=== PATIENT | female | born 1940 | race Caucasian/White ===

== ENCOUNTER 2017-01-27 22:26 | Inpatient (IN) | payer MEDICARE ==
[~2017-01-27] VITALS: Ht 160 cm; Wt 62.5 kg
[2017-01-27 22:46] VITALS: Ht 160 cm; Wt 62.5 kg
[2017-01-28] MEDS ORDERED: CEFEPIME 2GM/50 ML (PMX) 50 ML IVPB STA (01:26)
[2017-01-28] MEDS ORDERED: VANCOMYCIN 1 GM (PMX) 250 ML IVPB ONE (01:30)
[2017-01-28 02:29] LABS: ADD SCAN DIFF NO
[2017-01-28 02:34] LABS: BASOPHILS % 0.2 % (0.0-2.0); EOSINOPHILS # 0.1 10^3/ul (0.0-0.5); EOSINOPHILS % 1.1 % (0.0-7.0); HEMOGLOBIN 12.6 g/dl (12.0-16.0); LYMPHOCYTES % 21.4 % (15.0-51.0); MEAN CORPUSCULAR HEMOGLOBIN 30.7 pg (29.0-33.0); MEAN CORPUSCULAR HGB CONC 33.2 g/dl (32.0-37.0); MEAN CORPUSCULAR VOLUME 92.5 fl (82.0-101.0); MONOCYTE # 0.6 10^3/ul (0.3-0.9); MONOCYTES % 6.3 % (0.0-11.0); NEUTROPHIL # 6.6 10^3/ul (1.6-7.5); PLATELET COUNT 229 10^3/UL (140-415); RED BLOOD COUNT 4.11 10^6/ul (4.20-5.40); RED CELL DISTRIBUTION WIDTH 12.7 % (11.5-14.5); WHITE BLOOD COUNT 9.4 10^3/ul (4.8-10.8)
--- NOTE | 2017-01-28 02:42 | ERA ---
ER Documentation Chief Complaint Date/Time DATE: 01/28/17 TIME: 02:41 Chief Complaint sp fall from 3 steps stairs, face down, facial hematoma, bump forehead HPI This is a 76-year-old female who recently came back on a trip to [place] 8 days ago. 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 She also tripped and fell today and has a small periorbital hematoma. No loss of consciousness. No fevers no chills. No other current complaints. ROS All systems reviewed and are negative except as per history of present illness. Allergies Allergies: Coded Allergies: No Known Allergy (Unverified , 01/27/17) PMhx/Soc History of Surgery: No Anesthesia Reaction: No Hx Neurological Disorder: No Hx Respiratory Disorders: No Hx Cardiac Disorders: No Hx Psychiatric Problems: No Hx Miscellaneous Medical Probl: Yes (high cholesterol) Hx Alcohol Use: No Hx Substance Use: No Hx Tobacco Use: No Smoking Status: Never smoker Physical Exam Vitals Vital Signs Date Time Temp Pulse Resp B/P Pulse Ox O2 Delivery O2 Flow Rate FiO2 01/28/17 02:16 99.5 66 25 151/79 96 Room Air 01/27/17 22:46 98.9 62 20 153/67 98 Physical Exam Const: [] Head: Atraumatic Eyes: Normal Conjunctiva ENT: Normal External Ears, Nose and Mouth. Neck: Full range of motion..~ No meningismus. Resp: Clear to auscultation bilaterally Cardio: Regular rate and rhythm, no murmurs Abd: Soft, non tender, non distended. Normal bowel sounds Skin: No petechiae or rashes Back: No midline or flank tenderness Ext: No cyanosis, or edema Neur: Awake and alert Psych: Normal Mood and Affect Results 24 hrs Current Medications Medications (Trade) Dose Ordered Sig/Francine Route PRN Reason Start Time Stop Time Status Last Admin Dose Admin Cefepime HCl 50 ml @ 100 mls/hr ONCE STAT IVPB 01/28/17 01:26 01/28/17 01:55 DC Vancomycin HCl (Vancocin) 250 ml @ 125 mls/hr ONCE ONCE IVPB 01/28/17 01:30 01/28/17 03:29 01/28/17 02:15 Procedures/MDM Blood cultures pending. CT of the head negative for acute intracranial pathology. Medical decision-makin for mechanical trip and fall. She has no intracranial abnormality, however she has a worsening cellulitis of lower extremity requiring IV antibiotics and admission. Patient will be admitted to hospitalist. Departure Diagnosis: Primary Impression: Fall Qualified Code: W19.XXXA - Fall, initial encounter Additional Impression: Left leg cellulitis Condition: Serious JOMAR HENRIQUEZ Jan 28, 2017 02:42
[2017-01-28 02:48] LABS: ALBUMIN 3.5 g/dl (3.3-4.9)
[2017-01-28 02:49] LABS: POTASSIUM 4.4 mmol/L (3.5-5.1)
[2017-01-28 02:51] LABS: ALBUMIN/GLOBULIN RATIO 1.02; BILIRUBIN,INDIRECT 0.7 mg/dl (0-1.1); BILIRUBIN,TOTAL 0.7 mg/dl (0.2-1.3); CREATININE 0.51 mg/dl (0.44-1.00); TOTAL PROTEIN 6.9 g/dl (6.1-8.1)
[2017-01-28 02:52] LABS: CALCIUM 10.1 mg/dl (8.4-10.2)
[2017-01-28] MEDS ORDERED: SOD CHLORIDE 0.9% 1,000 ML IV SCH (03:18)
[2017-01-28] MEDS ORDERED: NACL 0.9% 3 ML SYG IV SCH (03:30)
[2017-01-28] MEDS ORDERED: NITROGLYCERIN (SL) 0.4 MG TAB SL PRN (03:30)
[2017-01-28] MEDS ORDERED: ONDANSETRON 4 MG INJ IV PRN (03:30)
[2017-01-28] MEDS ORDERED: ALBUTEROL/IPRATROPIUM (NEB) 3 ML AMP HHN PRN (03:30)
[2017-01-28] MEDS ORDERED: MAGNESIUM HYDROXIDE 30ML CUP PO PRN (03:30)
[2017-01-28] MEDS ORDERED: DOCUSATE SODIUM 100 MG CAP PO PRN (03:30)
[2017-01-28] MEDS ORDERED: NA PHOSPHATE/BIPHOS 133 ML ENEMA PR PRN (03:30)
[2017-01-28] MEDS ORDERED: ACETAMINOPHEN 325 MG TAB PO PRN (03:30)
[2017-01-28] MEDS ORDERED: hydrALAzine 20 MG INJ IV PRN (03:30)
[2017-01-28] MEDS ORDERED: LORAZEPAM 2 MG INJ IV PRN (03:30)
--- NOTE | 2017-01-28 03:36 | RADRPT ---
PROCEDURE: Noncontrast CT Head. CLINICAL INDICATION: Pain. TECHNIQUE: Noncontrast CT of the head was obtained. The administered radiation dose was CTDI vol = 45 mGy, DLP = 720 mGy-cm. COMPARISON: No pertinent prior examinations were submitted for comparison. FINDINGS: The ventricles and cortical sulci are mildly enlarged. There is mild decreased attenuation within t he periventricular and subcortical white matter compatible with chronic microvascular changes. There is no acute intracranial hemorrhage or extra-axial fluid collection. There is no mass effect . No midline shift is identified. There is no loss of callahan-white differentiation to suggest acute in farction. The orbits are within normal limits. There is partial opacification of the right maxillary sinus and ethmoid air cells. No destructive osseous lesion is identified. IMPRESSION: No acute findings. Mild diffuse parenchymal volume loss and chronic microvascular changes. RPTAT: HIKT .Elgin Moran MD, MD Date Time Electronically viewed and signed by .Elgin Moran MD, MD on 01/28/2017 03:36 .T/
[2017-01-28] MEDS: morphine 2 MG INJ IV PRN ×2 (04:00→09:11)
[2017-01-28 04:44] VITALS: TEMP 98.6
[2017-01-28 05:42] VITALS: BP 138/69; PULSE 62; RESP 18
[2017-01-28] MEDS ORDERED: PIPER-TAZO 3.375 GM IV (PMX) 100 ML IVPB SCH (06:00)
[2017-01-28] MEDS: PANTOPRAZOLE (EC) 40 MG TAB PO SCH (06:38)
--- NOTE | 2017-01-28 06:55 | HP ---
DATE OF ADMISSION: 01/28/2017 CHIEF COMPLAINT: Status post fall and left lower extremity pain and facial hematoma. HISTORY OF PRESENT ILLNESS: A 76-year-old female with no significant past medical history who recen sourav returned from a trip from [place] 7 to 8 days ago, apparently she has been having for the last fe w days left lower extremity pain and redness and also some warmth there with signs of possible cellu litis. There have been some purulent drainage noted too as well. She also tripped and fell shortly before admission today and developed a small periorbital hematoma but denied any loss of consciousn ess, no fevers or chills, no upper or lower GI bleeding. No nausea, vomiting, no chest pain, no solange rtness of breath. No diarrhea, no constipation. When she came in, there were signs of cellulitis a nd the patient was given IV antibiotics in the ER. PAST MEDICAL HISTORY: As stated above, high cholesterol. ALLERGIES: NO KNOWN DRUG ALLERGIES. MEDICATIONS AT HOME: Apparently none. SOCIAL HISTORY: Negative for smoking, drinking, or IV drug abuse. PAST SURGICAL HISTORY: None. FAMILY HISTORY: Noncontributory. PHYSICAL EXAMINATION: VITAL SIGNS: Today, T-max 99.5, pulse of 58 to 66, respirations 18 to 25, blood pressure is 138/69, saturating 96% on room air. GENERAL: The patient is lying in bed, answering questions appropriately, in no acute distress. HEENT: Pupils equal, round, react to light. Extraocular muscles intact. There is a large left per iorbital hematoma noted and there is some bruising noted on the facial area as well. NECK: Supple, no thyromegaly. LUNGS: Clear to auscultation bilaterally. CARDIOVASCULAR: S1, S2 heard. No rubs or gallops. ABDOMEN: Soft, nontender, nondistended. Normal bowel sounds. No rebound or guarding . MUSCULOSKELETAL: On her left lower extremity, there is redness and the warmth noted on the anterior guaman area as well. There is also mild bruising noted as well, but some mild edema noted around the warm area site and the redness site but otherwise no lower extremity edema noted on the right lower extremity. NEUROLOGIC: No focal deficits. LABORATORIES: CBC is completely normal. The comprehensive metabolic panel is normal. IMAGING: The head CT was performed that shows no acute findings. ASSESSMENT AND PLAN: A 76-year-old female with signs of status post fall with some bruising noted o n the skin as well as a left periorbital hematoma and also left lower extremity cellulitis. 1. Left lower extremity pain secondary to cellulitis. Continue broad spectrum IV antibiotics. Ingrid ck TSH, A1c, and lipid panel. Tylenol p.r.n. pain and fevers. [place] and morphine p.r.n. for pain. IV fluids will continue. Get physical therapy and occupational therapy consults as well. 2. High cholesterol. Check lipid panel. 3. Status post fall. Again, head CT was negative. She does have some bruising however and also a left eft periorbital hematoma. Continue pain control medications, physical therapy and occupational therapy consults and monitor for now. Avoid anticoagulants for now. 4. Gastrointestinal prophylaxis, proton pump inhibitor. 5. Deep vein thrombosis prophylaxis, sequential compression devices. Dictated By: TARA GUTIÉRREZ Conf#: [id number] DID#: [id number]
[2017-01-28 07:40] VITALS: BP 138/61; RESP 16
[2017-01-28] MEDS ORDERED: HEPARIN 5,000 UNIT/0.5 ML SYG SC SCH (09:00)
--- NOTE | 2017-01-28 10:54 | PN ---
Date/Time of Note Date/Time of Note DATE: 01/28/17 TIME: 10:52 Assessment/Plan VTE Prophylaxis VTE Prophylaxis Intervention: SCD's Lines/Catheters IV Catheter Type (from Nrsg): Peripheral IV Assessment/Plan Assessment/Plan 1. Left lower extremity pain secondary to cellulitis. Continue broad spectrum IV antibiotics. Check TSH, A1c, and lipid panel. Tylenol p.r.n. pain and fevers. [place] and morphine p.r.n. for pain. IV fluids will continue. Get physical therapy and occupational therapy consults as well. 2. s/p mechanical fall with significant bruising and left frontal hematoma - c/ ointractable pain, very unsteady gait 2. High cholesterol. Check lipid panel. 3. Status post fall. Again, head CT was negative. She does have some bruising however and also a left eft periorbital hematoma. Continue pain control medications, physical therapy and occupational therapy consults and monitor for now. Avoid anticoagulants for now. 4. Gastrointestinal prophylaxis, proton pump inhibitor. 5. Deep vein thrombosis prophylaxis, sequential compression devices. pt will need SNF rehab on discharge Subjective 24 Hr Interval Summary Free Text/Dictation pt has significant bruising wiht left frontal hematoma, cellulitis is worse in leg Exam/Review of Systems Vital Signs Vitals Vital Signs Date Time Temp Pulse Resp B/P Pulse Ox O2 Delivery O2 Flow Rate FiO2 01/28/17 07:40 98.2 60 16 138/61 97 01/28/17 05:42 Room Air Exam GENERAL: The patient is lying in bed, answering questions appropriately, in no acute distress. HEENT: Pupils equal, round, react to light. Extraocular muscles intact. There is a large left periorbital hematoma noted and there is some bruising noted on the facial area as well. NECK: Supple, no thyromegaly. LUNGS: Clear to auscultation bilaterally. CARDIOVASCULAR: S1, S2 heard. No rubs or gallops. ABDOMEN: Soft, nontender, nondistended. Normal bowel sounds. No rebound or guarding . MUSCULOSKELETAL: On her left lower extremity, there is redness and the warmth noted on the anterior guaman area as well. There is also mild bruising noted as well, but some mild edema noted around the warm area site and the redness site but otherwise no lower extremity edema noted on the right lower extremity. NEUROLOGIC: No focal deficits. Results Result Diagram: 01/28/17 0200 01/28/17 0200 Results 24 hrs Laboratory Tests Test 01/28/17 02:00 Alanine Aminotransferase (ALT/SGPT) 19 Albumin 3.5 Albumin/Globulin Ratio 1.02 Alkaline Phosphatase 96 Anion Gap 16 Aspartate Amino Transf (AST/SGOT) 27 Basophils # 0.0 Basophils % 0.2 Blood Urea Nitrogen 20 Calcium Level 10.1 Carbon Dioxide Level 26 Chloride Level 107 Creatinine 0.51 Direct Bilirubin 0.00 Eosinophils # 0.1 Eosinophils % 1.1 Free Thyroxine 1.62 Globulin 3.40 H Glucose Level 118 Hematocrit 38.0 Hemoglobin 12.6 Indirect Bilirubin 0.7 Lymphocytes # 2.0 Lymphocytes % 21.4 Mean Corpuscular Hemoglobin 30.7 Mean Corpuscular Hemoglobin Concent 33.2 Mean Corpuscular Volume 92.5 Mean Platelet Volume 10.0 Monocytes # 0.6 Monocytes % 6.3 Neutrophils # 6.6 Neutrophils % 70.0 Nucleated Red Blood Cells # 0.0 Nucleated Red Blood Cells % 0.0 Platelet Count 229 Potassium Level 4.4 Red Blood Count 4.11 L Red Cell Distribution Width 12.7 Sodium Level 145 H Total Bilirubin 0.7 Total Protein 6.9 White Blood Count 9.4 Medications Medications Current Medications Ondansetron HCl (Zofran Inj) 4 mg Q6H PRN IV NAUSEA AND/OR VOMITING Last administered on 01/28/17 03:59; Admin Dose 4 MG; Start 01/28/17 at 03:30 Acetaminophen (Tylenol Tab) 650 mg Q6H PRN PO PAIN LEVEL 1-3 OR FEVER; Start at 03:30 Acetaminophen/ Hydrocodone Bitart ([place] (5/325)) 1 tab Q6H PRN PO MODERATE PAIN LEVEL 4-6; Start 01/28/17 at 03:30 Docusate Sodium (Colace) 100 mg Q12H PRN PO CONSTIPATION; Start 01/28/17 at 03: 30 Magnesium Hydroxide (Milk Of Mag) 30 ml DAILY PRN PO CONSTIPATION; Start at 03:30 Sodium Biphosphate/ Sodium Phosphate (Fleet Enema) 133 ml DAILY PRN [place] CONSTIPATION; Start 01/28/17 at 03:30 Pantoprazole (Protonix Tab) 40 mg DAILY@06 PO Last administered on 01/28/17 06 :38; Admin Dose 40 MG; Start 01/28/17 at 06:00 Lorazepam (Ativan) 0.5 mg Q6H PRN IV ANXIETY; Start 01/28/17 at 03:30 Hydralazine HCl (Apresoline) 10 mg Q6H PRN IV ELEVATED BLOOD PRESSURE; Start at 03:30 Nitroglycerin 1 tab 1 tab Q5M PRN SL ANGINA; Start 01/28/17 at 03:30 Cefepime HCl 50 ml @ 100 mls/hr Q12 IVPB ; Start 01/28/17 at 09:00 Dextrose/Sodium Chloride (D5-1/2ns) 1,000 ml @ 75 mls/hr [id number] IV ; Start at 11:00 Hydromorphone HCl (Dilaudid) 1 mg Q4H PRN IV Severe PAIN; Start 01/28/17 at 11: 00 REY BRYANT MD Jan 28, 2017 10:54
[2017-01-28] MEDS: DEXTROSE 5%-0.45% NACL 1,000 ML IV SCH ×2 (11:00→18:37)
[2017-01-28] MEDS: HYDROmorphONE 1 MG/ML SYG IV PRN ×3 (12:20→18:38)
[2017-01-28] MEDS: CEFEPIME 2GM/50 ML (PMX) 50 ML IVPB SCH ×2 (12:22→21:02)
[2017-01-28 19:00] VITALS: BP 146/69; RESP 18
[2017-01-29] MEDS: PANTOPRAZOLE (EC) 40 MG TAB PO SCH (06:28)
[2017-01-29 06:40] LABS: CHOL/HDL RATIO 4.4 RATIO
[2017-01-29 06:47] LABS: ADD SCAN DIFF NO
[2017-01-29 06:53] LABS: BASOPHILS % 0.2 % (0.0-2.0); EOSINOPHILS # 0.2 10^3/ul (0.0-0.5); HEMATOCRIT 32.9 % (37.0-47.0); LYMPHOCYTES # 1.7 10^3/ul (0.8-2.9); LYMPHOCYTES % 20.9 % (15.0-51.0); MEAN CORPUSCULAR HEMOGLOBIN 31.1 pg (29.0-33.0); MEAN CORPUSCULAR HGB CONC 33.4 g/dl (32.0-37.0); MEAN CORPUSCULAR VOLUME 92.9 fl (82.0-101.0); MEAN PLATELET VOLUME 9.6 fl (7.4-10.4); MONOCYTE # 0.7 10^3/ul (0.3-0.9); NEUTROPHIL # 5.5 10^3/ul (1.6-7.5); PLATELET COUNT 257 10^3/UL (140-415); RED BLOOD COUNT 3.54 10^6/ul (4.20-5.40); RED CELL DISTRIBUTION WIDTH 12.7 % (11.5-14.5); WHITE BLOOD COUNT 8.2 10^3/ul (4.8-10.8)
[2017-01-29 07:06] LABS: THYROID STIMULATING HORMONE 2.82 MIU/L (0.465-4.680)
[2017-01-29 07:32] VITALS: BP 156/68; RESP 18
[2017-01-29 07:35] LABS: CREATININE 0.5 mg/dl (0.44-1.00); PHOSPHORUS 2.1 mg/dl (2.5-4.9)
[2017-01-29 07:36] LABS: CALCIUM 9.3 mg/dl (8.4-10.2); MAGNESIUM 2.1 mg/dl (1.7-2.5)
[2017-01-29] MEDS: CEFEPIME 2GM/50 ML (PMX) 50 ML IVPB SCH ×2 (08:53→20:43)
--- NOTE | 2017-01-29 10:18 | PN ---
Date/Time of Note Date/Time of Note DATE: 01/29/17 TIME: 10:17 Assessment/Plan VTE Prophylaxis VTE Prophylaxis Intervention: SCD's Lines/Catheters IV Catheter Type (from Nrsg): Peripheral IV Urinary Cath still in place: No Assessment/Plan Assessment/Plan 1. Left lower extremity pain secondary to cellulitis. Continue broad spectrum IV antibiotics. Check TSH, A1c, and lipid panel. Tylenol p.r.n. pain and fevers. [place] and morphine p.r.n. for pain. IV fluids will continue. Get physical therapy and occupational therapy consults as well. 2. s/p mechanical fall with significant bruising and left frontal hematoma - c/ ointractable pain, very unsteady gait 2. High cholesterol. Check lipid panel. 3. Status post fall. Again, head CT was negative. She does have some bruising however and also a left eft periorbital hematoma. Continue pain control medications, physical therapy and occupational therapy consults and monitor for now. Avoid anticoagulants for now. 4. Gastrointestinal prophylaxis, proton pump inhibitor. 5. Deep vein thrombosis prophylaxis, sequential compression devices. PT follow up and Treatment pt will need SNF rehab on discharge Subjective 24 Hr Interval Summary Free Text/Dictation pt remains stable but still c/o severe pain Exam/Review of Systems Vital Signs Vitals Vital Signs Date Time Temp Pulse Resp B/P Pulse Ox O2 Delivery O2 Flow Rate FiO2 01/29/17 07:32 98.6 66 18 156/68 96 01/28/17 05:42 Room Air Intake and Output 01/28/17 01/28/17 01/29/17 15:00 23:00 07:00 Intake Total 50 ml 2390 ml 680 ml Output Total 700 ml Balance 50 ml 2390 ml -20 ml Exam GENERAL: The patient is lying in bed, answering questions appropriately, in no acute distress. HEENT: Pupils equal, round, react to light. Extraocular muscles intact. There is a large left periorbital hematoma noted and there is some bruising noted on the facial area as well. NECK: Supple, no thyromegaly. LUNGS: Clear to auscultation bilaterally. CARDIOVASCULAR: S1, S2 heard. No rubs or gallops. ABDOMEN: Soft, nontender, nondistended. Normal bowel sounds. No rebound or guarding . MUSCULOSKELETAL: On her left lower extremity, there is redness and the warmth noted on the anterior guaman area as well. There is also mild bruising noted as well, but some mild edema noted around the warm area site and the redness site but otherwise no lower extremity edema noted on the right lower extremity. NEUROLOGIC: No focal deficits. Results Result Diagram: 01/29/17 0540 01/29/17 0540 Results 24 hrs Laboratory Tests Test 01/29/17 05:40 Anion Gap 13 Basophils # 0.0 Basophils % 0.2 Blood Urea Nitrogen 10 # Calcium Level 9.3 Carbon Dioxide Level 24 Chloride Level 109 Cholesterol Level 133 Cholesterol/HDL Ratio 4.4 Creatinine 0.50 Eosinophils # 0.2 Eosinophils % 2.0 Glucose Level 92 HDL Cholesterol 30 L Hematocrit 32.9 L Hemoglobin 11.0 L Hemoglobin A1c 5.8 LDL Cholesterol, Calculated 80 Lymphocytes # 1.7 Lymphocytes % 20.9 Magnesium Level 2.1 Mean Corpuscular Hemoglobin 31.1 Mean Corpuscular Hemoglobin Concent 33.4 Mean Corpuscular Volume 92.9 Mean Platelet Volume 9.6 Monocytes # 0.7 Monocytes % 9.0 Neutrophils # 5.5 Neutrophils % 67.0 Nucleated Red Blood Cells # 0.0 Nucleated Red Blood Cells % 0.0 Phosphorus Level 2.1 L Platelet Count 257 Potassium Level 4.0 Red Blood Count 3.54 L Red Cell Distribution Width 12.7 Sodium Level 142 Thyroid Stimulating Hormone (TSH) 2.820 Triglycerides Level 113 White Blood Count 8.2 Medications Medications Current Medications Ondansetron HCl (Zofran Inj) 4 mg Q6H PRN IV NAUSEA AND/OR VOMITING Last administered on 01/28/17t 03:59; Admin Dose 4 MG; Start 01/28/17 at 03:30 Acetaminophen (Tylenol Tab) 650 mg Q6H PRN PO PAIN LEVEL 1-3 OR FEVER; Start at 03:30 Acetaminophen/ Hydrocodone Bitart ([place] (5/325)) 1 tab Q6H PRN PO MODERATE PAIN LEVEL 4-6; Start 01/28/17 at 03:30 Docusate Sodium (Colace) 100 mg Q12H PRN PO CONSTIPATION; Start 01/28/17 at 03: 30 Magnesium Hydroxide (Milk Of Mag) 30 ml DAILY PRN PO CONSTIPATION; Start at 03:30 Sodium Biphosphate/ Sodium Phosphate (Fleet Enema) 133 ml DAILY PRN [place] CONSTIPATION; Start 01/28/17 at 03:30 Pantoprazole (Protonix Tab) 40 mg DAILY@06 PO Last administered on 01/29/17 06 :28; Admin Dose 40 MG; Start 01/28/17 at 06:00 Lorazepam (Ativan) 0.5 mg Q6H PRN IV ANXIETY; Start 01/28/17 at 03:30 Hydralazine HCl (Apresoline) 10 mg Q6H PRN IV ELEVATED BLOOD PRESSURE; Start at 03:30 Nitroglycerin 1 tab 1 tab Q5M PRN SL ANGINA; Start 01/28/17 at 03:30 Cefepime HCl 50 ml @ 100 mls/hr Q12 IVPB Last administered on 01/29/17 08:53 ; Admin Dose 100 MLS/HR; Start 01/28/17 at 09:00 Dextrose/Sodium Chloride (D5-1/2ns) 1,000 ml @ 75 mls/hr [id number] IV Last administered on 01/28/17 18:37; Admin Dose 75 MLS/HR; Start 01/28/17 at 11:00 Hydromorphone HCl (Dilaudid) 1 mg Q4H PRN IV Severe PAIN Last administered on 18:38; Admin Dose 1 MG; Start 01/28/17 at 11:00 REY BRYANT MD Jan 29, 2017 10:18
[2017-01-29] MEDS: DEXTROSE 5%-0.45% NACL 1,000 ML IV SCH (10:49)
[2017-01-29] MEDS ORDERED: AMLODIPINE 5 MG TAB PO ONE (11:00)
[2017-01-29 19:56] VITALS: BP 132/69; RESP 16
[2017-01-29] MEDS: AMLODIPINE 5 MG TAB PO SCH (20:48)
[2017-01-30] MEDS: PANTOPRAZOLE (EC) 40 MG TAB PO SCH (06:13)
[2017-01-30 07:30] VITALS: BP 138/62; RESP 18
[2017-01-30 07:59] LABS: ADD SCAN DIFF NO
[2017-01-30 08:16] LABS: BASOPHILS % 0.3 % (0.0-2.0); EOSINOPHILS # 0.1 10^3/ul (0.0-0.5); EOSINOPHILS % 1.6 % (0.0-7.0); HEMATOCRIT 34.8 % (37.0-47.0); HEMOGLOBIN 11.7 g/dl (12.0-16.0); LYMPHOCYTES # 1.8 10^3/ul (0.8-2.9); LYMPHOCYTES % 21.2 % (15.0-51.0); MEAN CORPUSCULAR HEMOGLOBIN 30.5 pg (29.0-33.0); MEAN CORPUSCULAR HGB CONC 33.6 g/dl (32.0-37.0); MEAN CORPUSCULAR VOLUME 90.9 fl (82.0-101.0); MEAN PLATELET VOLUME 9.4 fl (7.4-10.4); MONOCYTE # 0.7 10^3/ul (0.3-0.9); MONOCYTES % 8.3 % (0.0-11.0); NEUTROPHIL # 5.8 10^3/ul (1.6-7.5); NEUTROPHILS % 67.4 % (39.0-77.0); PLATELET COUNT 289 10^3/UL (140-415); RED BLOOD COUNT 3.83 10^6/ul (4.20-5.40); RED CELL DISTRIBUTION WIDTH 12.3 % (11.5-14.5); WHITE BLOOD COUNT 8.6 10^3/ul (4.8-10.8)
[2017-01-30 08:20] LABS: POTASSIUM 3.9 mmol/L (3.5-5.1)
[2017-01-30 08:22] LABS: CREATININE 0.48 mg/dl (0.44-1.00)
[2017-01-30 08:23] LABS: CALCIUM 9.7 mg/dl (8.4-10.2)
[2017-01-30] MEDS: CEFEPIME 2GM/50 ML (PMX) 50 ML IVPB SCH ×2 (09:08→21:00)
[2017-01-30] MEDS: AMLODIPINE 5 MG TAB PO SCH ×2 (09:09→21:01)
[2017-01-30] MEDS: DEXTROSE 5%-0.45% NACL 1,000 ML IV SCH (10:54)
--- NOTE | 2017-01-30 17:00 | PN ---
Date/Time of Note Date/Time of Note DATE: 01/30/17 TIME: 16:57 Assessment/Plan VTE Prophylaxis VTE Prophylaxis Intervention: SCD's Lines/Catheters IV Catheter Type (from Nrsg): Peripheral IV Urinary Cath still in place: No Assessment/Plan Assessment/Plan 1. Left lower extremity pain secondary to cellulitis. Continue broad spectrum IV antibiotics. Check TSH, A1c, and lipid panel. Tylenol p.r.n. pain and fevers. [place] and morphine p.r.n. for pain. IV fluids will continue. Get physical therapy and occupational therapy consults as well. 2. s/p mechanical fall with significant bruising and left frontal hematoma - c/ ointractable pain, very unsteady gait 2. High cholesterol. Check lipid panel. 3. Status post fall. Again, head CT was negative. She does have some bruising however and also a left eft periorbital hematoma. Continue pain control medications, physical therapy and occupational therapy consults and monitor for now. Avoid anticoagulants for now. 4. Gastrointestinal prophylaxis, proton pump inhibitor. 5. Deep vein thrombosis prophylaxis, sequential compression devices. PT follow up and Treatment patient and Family refused SNF placement for rehab- She wants to go home Date of Encounter: 01/30/2017: Pt lives alone and Two of her daughters lives in [place], Son has no time to help her because of his Job. we will set up home health for Medications, RN visit, BP check, Physicla therapy and Home safety evaluation. Pt has no transportation available and she is s/p Fall with Recent left frontal hematoma, and Bruising, can not drive safely. Subjective 24 Hr Interval Summary Free Text/Dictation pt stable, afbrile, Refused SNF placement, wants to go to home Exam/Review of Systems Vital Signs Vitals Vital Signs Date Time Temp Pulse Resp B/P Pulse Ox O2 Delivery O2 Flow Rate FiO2 01/30/17 07:30 98.0 65 18 138/62 95 01/28/17 05:42 Room Air Intake and Output 01/29/17 01/29/17 01/30/17 15:00 23:00 07:00 Intake Total 50 ml 510 ml 1050 ml Balance 50 ml 510 ml 1050 ml Results Result Diagram: 01/30/17 0720 01/30/17 0720 Results 24 hrs Laboratory Tests Test 01/30/17 07:20 Anion Gap 10 Basophils # 0.0 Basophils % 0.3 Blood Urea Nitrogen 13 Calcium Level 9.7 Carbon Dioxide Level 28 Chloride Level 107 Creatinine 0.48 Eosinophils # 0.1 Eosinophils % 1.6 Glucose Level 98 Hematocrit 34.8 L Hemoglobin 11.7 L Lymphocytes # 1.8 Lymphocytes % 21.2 Mean Corpuscular Hemoglobin 30.5 Mean Corpuscular Hemoglobin Concent 33.6 Mean Corpuscular Volume 90.9 Mean Platelet Volume 9.4 Monocytes # 0.7 Monocytes % 8.3 Neutrophils # 5.8 Neutrophils % 67.4 Nucleated Red Blood Cells # 0.0 Nucleated Red Blood Cells % 0.0 Platelet Count 289 Potassium Level 3.9 Red Blood Count 3.83 L Red Cell Distribution Width 12.3 Sodium Level 141 White Blood Count 8.6 Medications Medications Current Medications Ondansetron HCl (Zofran Inj) 4 mg Q6H PRN IV NAUSEA AND/OR VOMITING Last administered on 01/28/17 03:59; Admin Dose 4 MG; Start 01/28/17 at 03:30 Acetaminophen (Tylenol Tab) 650 mg Q6H PRN PO PAIN LEVEL 1-3 OR FEVER; Start at 03:30 Acetaminophen/ Hydrocodone Bitart ([place] (5/325)) 1 tab Q6H PRN PO MODERATE PAIN LEVEL 4-6; Start 01/28/17 at 03:30 Docusate Sodium (Colace) 100 mg Q12H PRN PO CONSTIPATION; Start 01/28/17 at 03: 30 Magnesium Hydroxide (Milk Of Mag) 30 ml DAILY PRN PO CONSTIPATION; Start at 03:30 Sodium Biphosphate/ Sodium Phosphate (Fleet Enema) 133 ml DAILY PRN [place] CONSTIPATION; Start 01/28/17 at 03:30 Pantoprazole (Protonix Tab) 40 mg DAILY@06 PO Last administered on 01/30/17 06 :13; Admin Dose 40 MG; Start 01/28/17 at 06:00 Lorazepam (Ativan) 0.5 mg Q6H PRN IV ANXIETY; Start 01/28/17 at 03:30 Hydralazine HCl (Apresoline) 10 mg Q6H PRN IV ELEVATED BLOOD PRESSURE; Start at 03:30 Nitroglycerin 1 tab 1 tab Q5M PRN SL ANGINA; Start 01/28/17 at 03:30 Cefepime HCl 50 ml @ 100 mls/hr Q12 IVPB Last administered on 01/30/17 09:08 ; Admin Dose 100 MLS/HR; Start 01/28/17 at 09:00 Dextrose/Sodium Chloride (D5-1/2ns) 1,000 ml @ 50 mls/hr Q20H IV Last administered on 01/30/17 10:54; Admin Dose 50 MLS/HR; Start 01/28/17 at 11:00 Hydromorphone HCl (Dilaudid) 1 mg Q4H PRN IV Severe PAIN Last administered on 18:38; Admin Dose 1 MG; Start 01/28/17 at 11:00 Amlodipine Besylate (Norvasc) 5 mg BID PO Last administered on 01/30/17 09:09 ; Admin Dose 5 MG; Start 01/29/17 at 21:00 REY BRYANT MD Jan 30, 2017 17:00
[2017-01-30 20:03] VITALS: BP 152/73; RESP 16
[2017-01-31] MEDS: PANTOPRAZOLE (EC) 40 MG TAB PO SCH (05:31)
[2017-01-31] MEDS: DEXTROSE 5%-0.45% NACL 1,000 ML IV SCH (05:31)
[2017-01-31 07:30] VITALS: BP 143/77; RESP 19
[2017-01-31] MEDS: AMLODIPINE 5 MG TAB PO SCH ×2 (08:40→21:47)
[2017-01-31] MEDS: CEFEPIME 2GM/50 ML (PMX) 50 ML IVPB SCH ×2 (08:40→21:47)
[2017-01-31 08:50] LABS: ADD SCAN DIFF NO
[2017-01-31 09:01] LABS: BASOPHILS % 0.3 % (0.0-2.0); EOSINOPHILS # 0.1 10^3/ul (0.0-0.5); EOSINOPHILS % 1.3 % (0.0-7.0); HEMATOCRIT 36.2 % (37.0-47.0); HEMOGLOBIN 12.2 g/dl (12.0-16.0); LYMPHOCYTES # 1.7 10^3/ul (0.8-2.9); LYMPHOCYTES % 19.6 % (15.0-51.0); MEAN CORPUSCULAR HEMOGLOBIN 30.3 pg (29.0-33.0); MEAN CORPUSCULAR HGB CONC 33.7 g/dl (32.0-37.0); MEAN PLATELET VOLUME 9.1 fl (7.4-10.4); MONOCYTE # 0.6 10^3/ul (0.3-0.9); MONOCYTES % 7.1 % (0.0-11.0); NEUTROPHIL # 6.2 10^3/ul (1.6-7.5); NEUTROPHILS % 70.9 % (39.0-77.0); PLATELET COUNT 319 10^3/UL (140-415); RED BLOOD COUNT 4.02 10^6/ul (4.20-5.40); RED CELL DISTRIBUTION WIDTH 12.2 % (11.5-14.5); WHITE BLOOD COUNT 8.8 10^3/ul (4.8-10.8)
[2017-01-31 09:08] LABS: CREATININE 0.44 mg/dl (0.44-1.00)
[2017-01-31 09:09] LABS: CALCIUM 9.8 mg/dl (8.4-10.2)
--- NOTE | 2017-01-31 11:42 | PN ---
Date/Time of Note Date/Time of Note DATE: 01/31/17 TIME: 11:41 Assessment/Plan VTE Prophylaxis VTE Prophylaxis Intervention: SCD's Lines/Catheters IV Catheter Type (from Nrsg): Saline Lock Urinary Cath still in place: No Assessment/Plan Assessment/Plan 1. Left lower extremity pain secondary to cellulitis. Continue broad spectrum IV antibiotics. Check TSH, A1c, and lipid panel. Tylenol p.r.n. pain and fevers. [place] and morphine p.r.n. for pain. IV fluids will continue. Get physical therapy and occupational therapy consults as well. 2. s/p mechanical fall with significant bruising and left frontal hematoma - c/ ointractable pain, very unsteady gait 2. High cholesterol. Check lipid panel. 3. Status post fall. Again, head CT was negative. She does have some bruising however and also a left eft periorbital hematoma. Continue pain control medications, physical therapy and occupational therapy consults and monitor for now. Avoid anticoagulants for now. 4. Gastrointestinal prophylaxis, proton pump inhibitor. 5. Deep vein thrombosis prophylaxis, sequential compression devices. PT follow up and Treatment patient and Family refused SNF placement for rehab- She wants to go home Date of Encounter: 01/30/2017: Pt lives alone and Two of her daughters lives in [place], Son has no time to help her because of his Job. we will set up home health for Medications, RN visit, BP check, Physicla therapy and Home safety evaluation. Pt has no transportation available and she is s/p Fall with Recent left frontal hematoma, and Bruising, can not drive safely. Subjective 24 Hr Interval Summary Free Text/Dictation pt is coughing a lot, with yellow sputum Exam/Review of Systems Vital Signs Vitals Vital Signs Date Time Temp Pulse Resp B/P Pulse Ox O2 Delivery O2 Flow Rate FiO2 01/31/17 07:30 98.6 75 19 143/77 92 01/28/17 05:42 Room Air Intake and Output 01/30/17 01/30/17 01/31/17 15:00 23:00 07:00 Intake Total 200 ml 530 ml 1200 ml Output Total 500 ml Balance 200 ml 30 ml 1200 ml Exam GENERAL: The patient is lying in bed, answering questions appropriately, in no acute distress. HEENT: Pupils equal, round, react to light. Extraocular muscles intact. There is a large left periorbital hematoma noted and there is some bruising noted on the facial area as well. NECK: Supple, no thyromegaly. LUNGS: Clear to auscultation bilaterally. CARDIOVASCULAR: S1, S2 heard. No rubs or gallops. ABDOMEN: Soft, nontender, nondistended. Normal bowel sounds. No rebound or guarding . MUSCULOSKELETAL: On her left lower extremity, there is redness and the warmth noted on the anterior guaman area as well. There is also mild bruising noted as well, but some mild edema noted around the warm area site and the redness site but otherwise no lower extremity edema noted on the right lower extremity. NEUROLOGIC: No focal deficits. Results Result Diagram: 01/31/17 0750 01/31/17 0750 Results 24 hrs Laboratory Tests Test 01/31/17 07:50 Anion Gap 14 Basophils # 0.0 Basophils % 0.3 Blood Urea Nitrogen 11 Calcium Level 9.8 Carbon Dioxide Level 23 Chloride Level 107 Creatinine 0.44 Eosinophils # 0.1 Eosinophils % 1.3 Glucose Level 99 Hematocrit 36.2 L Hemoglobin 12.2 Lymphocytes # 1.7 Lymphocytes % 19.6 Mean Corpuscular Hemoglobin 30.3 Mean Corpuscular Hemoglobin Concent 33.7 Mean Corpuscular Volume 90.0 Mean Platelet Volume 9.1 Monocytes # 0.6 Monocytes % 7.1 Neutrophils # 6.2 Neutrophils % 70.9 Nucleated Red Blood Cells # 0.0 Nucleated Red Blood Cells % 0.0 Platelet Count 319 Potassium Level 4.0 Red Blood Count 4.02 L Red Cell Distribution Width 12.2 Sodium Level 140 White Blood Count 8.8 Medications Medications Current Medications Ondansetron HCl (Zofran Inj) 4 mg Q6H PRN IV NAUSEA AND/OR VOMITING Last administered on 01/28/17t 03:59; Admin Dose 4 MG; Start 01/28/17 at 03:30 Acetaminophen (Tylenol Tab) 650 mg Q6H PRN PO PAIN LEVEL 1-3 OR FEVER; Start at 03:30 Acetaminophen/ Hydrocodone Bitart ([place] (5/325)) 1 tab Q6H PRN PO MODERATE PAIN LEVEL 4-6; Start 01/28/17 at 03:30 Docusate Sodium (Colace) 100 mg Q12H PRN PO CONSTIPATION; Start 01/28/17 at 03: 30 Magnesium Hydroxide (Milk Of Mag) 30 ml DAILY PRN PO CONSTIPATION; Start at 03:30 Sodium Biphosphate/ Sodium Phosphate (Fleet Enema) [address] CONSTIPATION; Start 01/28/17 at 03:30 Pantoprazole (Protonix Tab) 40 mg DAILY@06 PO Last administered on 01/31/17 05 :31; Admin Dose 40 MG; Start 01/28/17 at 06:00 Lorazepam (Ativan) 0.5 mg Q6H PRN IV ANXIETY; Start 01/28/17 at 03:30 Hydralazine HCl (Apresoline) 10 mg Q6H PRN IV ELEVATED BLOOD PRESSURE; Start at 03:30 Nitroglycerin 1 tab 1 tab Q5M PRN SL ANGINA; Start 01/28/17 at 03:30 Cefepime HCl 50 ml @ 100 mls/hr Q12 IVPB Last administered on 01/31/17 08:40 ; Admin Dose 100 MLS/HR; Start 01/28/17 at 09:00 Dextrose/Sodium Chloride (D5-1/2ns) 1,000 ml @ 50 mls/hr Q20H IV Last administered on 01/31/17 05:31; Admin Dose 50 MLS/HR; Start 01/28/17 at 11:00 Hydromorphone HCl (Dilaudid) 1 mg Q4H PRN IV Severe PAIN Last administered on 18:38; Admin Dose 1 MG; Start 01/28/17 at 11:00 Amlodipine Besylate (Norvasc) 5 mg BID PO Last administered on 01/31/17 08:40 ; Admin Dose 5 MG; Start 01/29/17 at 21:00 REY BRYANT MD Jan 31, 2017 11:42
--- NOTE | 2017-01-31 11:44 | PDOCDIS ---
Discharge Instructions CONDITION Patient Condition: Good HOME CARE INSTRUCTIONS: Special Diet: LOW FAT / CHOL, CARB CONTROLLED ACTIVITY: Activity Restrictions: Slowly Increase Activity Rest between Activity Avoid heavy lifting Avoid Heavy Housework FOLLOW UP/APPOINTMENTS Appointments follow up with Dr.Kalpesh Bryant ([phone]) in 1 week after discharge REY BRYANT MD Jan 31, 2017 11:44
[2017-01-31] MEDS ORDERED: Promethazine/Codeine Syp PO (11:49)
[2017-01-31] MEDS ORDERED: LEVO500T10 PO (11:49)
[2017-01-31] MEDS ORDERED: AMLO-145 PO (11:49)
[2017-01-31] MEDS ORDERED: PROMETHAZINE/CODEINE 5ML CUP PO PRN (12:00)
[2017-01-31] MEDS ORDERED: PROMETHAZINE/CODEINE 5ML CUP PO ONE (12:00)
[2017-01-31 19:33] VITALS: BP 139/67; RESP 20
[2017-02-01] MEDS: DEXTROSE 5%-0.45% NACL 1,000 ML IV SCH ×2 (03:14→23:15)
[2017-02-01] MEDS: PANTOPRAZOLE (EC) 40 MG TAB PO SCH (05:31)
[2017-02-01 08:24] VITALS: BP 119/60; RESP 18
[2017-02-01] MEDS: CEFEPIME 2GM/50 ML (PMX) 50 ML IVPB SCH ×2 (08:46→21:20)
[2017-02-01] MEDS: AMLODIPINE 5 MG TAB PO SCH ×2 (08:47→21:22)
[2017-02-01] MEDS ORDERED: VANCOMYCIN IV PER PHARMACY XX SCH (10:00)
[2017-02-01] MEDS: HEPARIN 5,000 UNIT/0.5 ML SYG SC SCH ×2 (11:00→21:24)
--- NOTE | 2017-02-01 11:32 | RADRPT ---
PROCEDURE: XR left Tibia and Fibula. CLINICAL INDICATION: 76-year-old female with way into the left leg. Rule out osteomyelitis. TECHNIQUE: AP and lateral views of the left tibia and fibula were obtained. COMPARISON: No. FINDINGS: There is normal mineralization and alignment. No fracture or osseous lesion is identified. The joint s are unremarkable. As a contour global climate change analyst the ventral aspect of the proximal left calf which may be the result of a ulceration. There is soft tissue swelling but no evidence of subcutaneous emphys rosa or osteomyelitis. IMPRESSION: 1. No radiographic evidence of osteomyelitis. 2. Soft tissue swelling of the left calf with a contour global climate change analyst the ventral surface of the dist al left knee. This could be the result of an ulceration. RPTAT:AAJJ Physician Cyndie Date Time Electronically viewed and signed by Physician Cyndie on 02/01/2017 11:32 STAR/
[2017-02-01] MEDS ORDERED: VANCOMYCIN 1.5 GM in SOD CHLORIDE 0.9% 250 ML IVPB SCH (12:00)
--- NOTE | 2017-02-01 14:40 | RADRPT ---
PROCEDURE: MRI of the left lower extremity CLINICAL INDICATION: Left lower extremity pain and swelling, wound, concern for osteomyelitis TECHNIQUE: Multiplanar multisequence images of the left lower extremity without utilizing multiple pulse sequences. Images were interpreted at a independent PACS workstation. COMPARISON: Radiographs of the left lower extremity dated February 01, 2017 FINDINGS: A marker has been placed along the anterior aspect of the left lower extremity just below the knee. Deep to this marker there is a large anterior skin defect. There is abnormal bone marrow signal al anai the anterolateral aspect of the proximal tibia (sagittal 13 and coronal 20). This has an appear ance but could reflect a bone contusion/nondisplaced fracture there is no history of recent trauma. Difficult to entirely exclude osteomyelitis given the clinical concern. There is also mild focal margot ne marrow edema at the proximal tibia bordering the tibiofibular joint that may represent an additio nal bone contusion. There is also nonspecific edema within the anterior compartment musculature whi ch may reflect myositis. There is diffuse subcutaneous soft tissue swelling and ill-defined fluid anteriorly that may reflect hematoma at the level of the mid guaman (axial 26). Additionally, there are some dilated veins with surrounding soft tissue swelling throughout the soleus muscle as well as the deep posterior compartm ent of the calf (axial 31). Limited evaluation of the knee demonstrates focal chondral fissuring along the posterior aspect of t he medial femoral condyle as well as over the patella. IMPRESSION: 1. Large anterior skin defect near the tibial tuberosity. Just proximal to the skin defect there i s abnormal bone marrow signal along the anterolateral aspect of the tibial plateau that has an appea litzy that could be related to a recent trauma/bone contusion, to be correlated clinically. The laurence earance is less suggestive of osteomyelitis though this is not entirely exclude given the clinical c oncern and short-term follow-up MRI in 1-2 weeks is suggested for further evaluation. 2. Dilated veins along the posterior aspect of the calf within the soleus and deep posterior compar tment with mild surrounding edema. Difficult to exclude thrombophlebitis/venous thrombosis. Recomm end correlation with Doppler ultrasound. 3. Nonspecific edema within the anterior compartment musculature adjacent to the skin defect, query infectious or inflammatory myositis. 4. Subcutaneous soft tissue swelling throughout the visualized left lower extremity may represent c ellulitis. There is also some probable anterior subcutaneous hematoma at the mid tibial shaft. RPTAT: UU .Ashok Chance MD, Date Time Electronically viewed and signed by .Ashok Chance MD, MD on 02/01/2017 14:40 .K/
[2017-02-01 20:38] VITALS: BP 144/70; RESP 18
--- NOTE | 2017-02-01 21:01 | PN ---
Date/Time of Note Date/Time of Note DATE: 02/01/17 TIME: 20:59 Assessment/Plan VTE Prophylaxis VTE Prophylaxis Intervention: heparin Lines/Catheters IV Catheter Type (from Nrs): Saline Lock Urinary Cath still in place: No Assessment/Plan Assessment/Plan 1. Left lower extremity pain secondary to cellulitis. Continue broad spectrum IV antibiotics. wound not healign well, will add IV vancomycin, WOund cx, General surgery consult, X ray left leg and MRI LLE to rule out osteomyelitis 2. s/p mechanical fall with significant bruising and left frontal hematoma - c/ ointractable pain, very unsteady gait 2. High cholesterol. Check lipid panel. 3. Status post fall. Again, head CT was negative. She does have some bruising however and also a left eft periorbital hematoma. Continue pain control medications, physical therapy and occupational therapy consults and monitor for now. Avoid anticoagulants for now. 4. Gastrointestinal prophylaxis, proton pump inhibitor. 5. Deep vein thrombosis prophylaxis, sequential compression devices. PT follow up and Treatment patient and Family refused SNF placement for rehab- She wants to go home Date of Encounter: 01/30/2017: Pt lives alone and Two of her daughters lives in [place], Son has no time to help her because of his Job. we will set up home health for Medications, RN visit, BP check, Physicla therapy and Home safety evaluation. Pt has no transportation available and she is s/p Fall with Recent left frontal hematoma, and Bruising, can not drive safely. Subjective 24 Hr Interval Summary Free Text/Dictation pt left thigh wound is not healign well, BP stable,afebrile, WBC normal Exam/Review of Systems Vital Signs Vitals Vital Signs Date Time Temp Pulse Resp B/P Pulse Ox O2 Delivery O2 Flow Rate FiO2 02/01/17 20:38 99.2 67 18 144/70 95 Intake and Output 01/31/17 01/31/17 02/01/17 14:59 22:59 06:59 Intake Total 100 ml 700 ml 420 ml Balance 100 ml 700 ml 420 ml Exam GENERAL: The patient is lying in bed, answering questions appropriately, in no acute distress. HEENT: Pupils equal, round, react to light. Extraocular muscles intact. There is a large left periorbital hematoma noted and there is some bruising noted on the facial area as well. NECK: Supple, no thyromegaly. LUNGS: Clear to auscultation bilaterally. CARDIOVASCULAR: S1, S2 heard. No rubs or gallops. ABDOMEN: Soft, nontender, nondistended. Normal bowel sounds. No rebound or guarding . MUSCULOSKELETAL: On her left lower extremity, there is redness and the warmth noted on the anterior guaman area as well. There is also mild bruising noted as well, but some mild edema noted around the warm area site and the redness site but otherwise no lower extremity edema noted on the right lower extremity. NEUROLOGIC: No focal deficits. Results Result Diagram: 01/31/17 0750 01/31/17 0750 Medications Medications Current Medications Ondansetron HCl (Zofran Inj) 4 mg Q6H PRN IV NAUSEA AND/OR VOMITING Last administered on 01/28/17 03:59; Admin Dose 4 MG; Start 01/28/17 at 03:30 Acetaminophen (Tylenol Tab) 650 mg Q6H PRN PO PAIN LEVEL 1-3 OR FEVER; Start at 03:30 Acetaminophen/ Hydrocodone Bitart ([place] (5/325)) 1 tab Q6H PRN PO MODERATE PAIN LEVEL 4-6; Start 01/28/17 at 03:30 Docusate Sodium (Colace) 100 mg Q12H PRN PO CONSTIPATION; Start 01/28/17 at 03: 30 Magnesium Hydroxide (Milk Of Mag) 30 ml DAILY PRN PO CONSTIPATION; Start at 03:30 Sodium Biphosphate/ Sodium Phosphate (Fleet Enema) 133 ml DAILY PRN [place] CONSTIPATION; Start 01/28/17 at 03:30 Pantoprazole (Protonix Tab) 40 mg DAILY@06 PO Last administered on 02/01/17 05 :31; Admin Dose 40 MG; Start 01/28/17 at 06:00 Lorazepam (Ativan) 0.5 mg Q6H PRN IV ANXIETY; Start 01/28/17 at 03:30 Hydralazine HCl (Apresoline) 10 mg Q6H PRN IV ELEVATED BLOOD PRESSURE; Start at 03:30 Nitroglycerin 1 tab 1 tab Q5M PRN SL ANGINA; Start 01/28/17 at 03:30 Cefepime HCl 50 ml @ 100 mls/hr Q12 IVPB Last administered on 02/01/17 08:46 ; Admin Dose 100 MLS/HR; Start 01/28/17 at 09:00 Dextrose/Sodium Chloride (D5-1/2ns) 1,000 ml @ 50 mls/hr Q20H IV Last administered on 02/01/17 03:14; Admin Dose 50 MLS/HR; Start 01/28/17 at 11:00 Hydromorphone HCl (Dilaudid) 1 mg Q4H PRN IV Severe PAIN Last administered on 18:38; Admin Dose 1 MG; Start 01/28/17 at 11:00 Amlodipine Besylate (Norvasc) 5 mg BID PO Last administered on 02/01/17 08:47 ; Admin Dose 5 MG; Start 01/29/17 at 21:00 Promethazine HCl/ Codeine (Phenergan/ Codeine) 5 ml Q4H PRN PO COUGH Last administered on 02/01/17 08:47; Admin Dose 5 ML; Start 01/31/17 at 12:00 Heparin Sodium (Porcine) 5000 unit 5,000 unit BID SC Last administered on 11:00; Admin Dose 5,000 UNIT; Start 02/01/17 at 10:30 Vancomycin HCl (Vancocin) 250 ml @ 125 mls/hr Q24H IVPB ; Start 02/02/17 at 12: 00 REY BRYANT MD Feb 01, 2017 21:00
--- NOTE | 2017-02-01 21:39 | CONS ---
DATE OF ADMISSION: 01/28/2017 DATE OF CONSULTATION: 02/01/2017 TYPE OF CONSULTATION: Surgical. REFERRING PHYSICIAN: Humberto Vega MD CHIEF COMPLAINT: 1. Left lower extremity cellulitis. 2. Left lower extremity traumatic wound. 3. Left lower extremity pain. 4. Multiple bruises secondary to fall. HISTORY OF PRESENT ILLNESS: Delores Alvarez is a 76-year-old female who is mostly otherwise healthy and traveled from [place] to [facility] on a bus for a day and a half about a week and a half ago and then a few days after the trip started developing left lower extremity pain and swelling and warmth. Around the same time, she tripped down the stairs, which probably was a mechanical fall per family and developed multiple injuries including left lower extremity and face. She denies losing conscio usness. Denies fevers or chills. Denies chest pain or shortness of breath. Denies abdominal pain. Denies nausea, vomiting. Denies cough, seizure, dysuria, abnormal discharge. No previous history of the same. She was admitted for cellulitis and antibiotics. An MRI of the lower extremity today identified ant erior skin defect near tibial tuberosity with abnormal bone marrow signal which could be due to trau ma or contusion, however cannot rule out an osteo fully. She also has dilated veins along the poste rior aspect of the calf within the soleus and deep posterior compartment with mild surrounding edema . Difficult to exclude thrombophlebitis or thrombosis at the site. Nonspecific edema within the an terior compartment musculature adjacent to the skin defect, possible inflammatory myositis. There i s subcutaneous soft-tissue swelling throughout the left lower extremity with probable cellulitis. T here is also some anterior subcutaneous hematoma at the mid tibial shaft. Surgical consult was otis hightower for further evaluation and treatment. PAST MEDICAL HISTORY: 1. Left lower extremity cellulitis and myositis. 2. Left lower extremity traumatic wound with possible infection. 3. Mechanical fall with multiple bruises. 4. Dyslipidemia. 5. Recent anemia. PAST SURGICAL HISTORY: Denies. MEDICATIONS: As per JAN. ALLERGIES: NONE. SOCIAL HISTORY: No alcohol, drugs or tobacco. FAMILY HISTORY: Noncontributory. REVIEW OF SYSTEMS: A 12-point review of systems negative unless addressed in HPI. PHYSICAL EXAMINATION: VITAL SIGNS: Temperature is 98.9, pulse 64, blood pressure 119/60, saturating 95%. GENERAL: No acute distress. Pleasant. HEENT: Pupils equal, reactive. No scleral icterus. Periorbital hematoma. Mucous membranes are mo ist. NECK: Supple. No crepitus, no JVD, no midline tenderness. PULMONARY: Normal respiratory effort. No wheezing. CARDIOVASCULAR: S1, S2 present. ABDOMEN: Soft, nontender. EXTREMITIES: Multiple ecchymoses. Bilateral lower extremity skin changes. Wound of the right lowe r extremity that scabbed over. Left anterior lower extremity wound with debris and foul odor. Blan tran erythema, left lower extremity with some swelling and minimal tenderness. VASCULAR: Capillary refill is 2 seconds. NEUROLOGIC: Alert, oriented. Moves all 4 extremities grossly. PSYCHIATRIC: Normal affect. LYMPHATICS: No inguinal or cervical lymphadenopathy. LABORATORY AND RADIOGRAPHIC: As per chart and HPI. ASSESSMENT AND PLAN: Delores Alvarez is a 76-year-old female. 1. Left anterior guaman traumatic wound with necrotic tissue and foul odor. Continue antibiotics, lo mckayla wound care with Dakin's, elevation of the left lower extremity, nutritional optimization and Vit hernandez C and short-term zinc. The patient will also benefit from debridement. 2. Left lower extremity swelling and pain with MRI findings of dilated veins. Need to rule out ralf p venous thrombosis stat. Will obtain a duplex ultrasound. 3. Cellulitis of left lower extremity. Continue antibiotics, elevation and will obtain duplex. 4. Multiple traumatic ecchymotic areas secondary to fall. Ice pack as needed. Continue monitoring . 5. Anemia has improved. 6. Dyslipidemia. Continue nutritional and possible medical optimization. Thank you very much for consulting me in this patient's care. Dictated By: GUS SOLANO/JACK Conf#: [id number] DID#: [id number]
--- NOTE | 2017-02-01 23:59 | RADRPT ---
PROCEDURE: US DVT. CLINICAL INDICATION: Left lower extremity pain and swelling. TECHNIQUE: Multiple longitudinal and transverse images of the left lower extremity veins were obta ined with callahan scale and color Doppler imaging. 2D grayscale measurements with compression, color D oppler flow, and augmentation was performed. The calf veins were interrogated as well. COMPARISON: No prior studies are available for comparison. FINDINGS: The left common femoral, superficial femoral and popliteal veins are normally compressible throughou t. Color flow demonstrates normal filling of the vessel. Normal waveforms are visualized and there is normal response to augmentation. The calf veins are visualized and are equally unremarkable. IMPRESSION: 1. No evidence of a deep vein thrombosis involving the left lower extremity. RPTAT: HFN .Francis Dozier MD, Date Time Electronically viewed and signed by .Francis Dozier MD, MD on 02/01/2017 23:58 .N/
[2017-02-02] MEDS ORDERED: SILVER NITRATE SWAB TOP ONE (05:00)
[2017-02-02] MEDS ORDERED: LIDOCAINE 1%/EPI (MDV) 20 ML INJ INJ ONE (05:00)
[2017-02-02] MEDS ORDERED: LIDOCAINE 1%/EPI 30 ML INJ INJ SCH (05:00)
[2017-02-02] MEDS: PANTOPRAZOLE (EC) 40 MG TAB PO SCH (05:58)
[2017-02-02 06:06] LABS: ADD SCAN DIFF NO
[2017-02-02 06:25] LABS: ALBUMIN 3.1 g/dl (3.3-4.9); POTASSIUM 3.8 mmol/L (3.5-5.1)
[2017-02-02 06:26] LABS: INR 1.07; PROTIME 13.9 Sec (12.2-14.2); PT RATIO 1.1
[2017-02-02 06:27] LABS: CREATININE 0.51 mg/dl (0.44-1.00); PARTIAL THROMBOPLASTIN TIME 32.3 Sec (25.0-35.0)
[2017-02-02 06:28] LABS: ALBUMIN/GLOBULIN RATIO 0.93; BILIRUBIN,INDIRECT 0.7 mg/dl (0-1.1); BILIRUBIN,TOTAL 0.7 mg/dl (0.2-1.3); CALCIUM 10.1 mg/dl (8.4-10.2); TOTAL PROTEIN 6.4 g/dl (6.1-8.1)
[2017-02-02 06:32] LABS: BASOPHILS % 0.4 % (0.0-2.0); EOSINOPHILS # 0.2 10^3/ul (0.0-0.5); EOSINOPHILS % 2.5 % (0.0-7.0); LYMPHOCYTES # 2.1 10^3/ul (0.8-2.9); LYMPHOCYTES % 24.6 % (15.0-51.0); MEAN CORPUSCULAR HEMOGLOBIN 29.7 pg (29.0-33.0); MEAN CORPUSCULAR HGB CONC 32.4 g/dl (32.0-37.0); MEAN CORPUSCULAR VOLUME 91.6 fl (82.0-101.0); MEAN PLATELET VOLUME 9.4 fl (7.4-10.4); MONOCYTE # 0.6 10^3/ul (0.3-0.9); MONOCYTES % 7.4 % (0.0-11.0); NEUTROPHIL # 5.5 10^3/ul (1.6-7.5); NEUTROPHILS % 63.9 % (39.0-77.0); PLATELET COUNT 332 10^3/UL (140-415); RED BLOOD COUNT 4.04 10^6/ul (4.20-5.40); RED CELL DISTRIBUTION WIDTH 12.6 % (11.5-14.5); WHITE BLOOD COUNT 8.6 10^3/ul (4.8-10.8)
[2017-02-02 07:19] VITALS: BP 132/65; RESP 18
[2017-02-02] MEDS: AMLODIPINE 5 MG TAB PO SCH ×2 (09:49→20:59)
[2017-02-02] MEDS: CEFEPIME 2GM/50 ML (PMX) 50 ML IVPB SCH ×2 (09:50→20:59)
[2017-02-02] MEDS: DEXTROSE 5%-0.45% NACL 1,000 ML IV SCH ×2 (09:50→19:15)
[2017-02-02] MEDS: HEPARIN 5,000 UNIT/0.5 ML SYG SC SCH ×2 (09:56→21:16)
[2017-02-02 10:01] VITALS: BP 117/62; PULSE 73
--- NOTE | 2017-02-02 10:33 | PN ---
Date/Time of Note Date/Time of Note DATE: 02/02/17 TIME: 10:26 Assessment/Plan Lines/Catheters IV C[facility]ter Type (from [facility] Saline Lock Deng in Place (from [facility]): No Assessment/Plan Chief Complaint/Hosp Course 1. Left anterior guaman traumatic wound with necrotic tissue and foul odor. Continue antibiotics, local wound care with Dakin's, elevation of the left lower extremity, nutritional optimization and Vitamin C and short-term zinc. The patient will also benefit from debridement. 2. Left lower extremity swelling and pain with MRI findings of dilated veins. Duplex negative for DVT. 3. Cellulitis of left lower extremity. Continue antibiotics, elevation. 4. Multiple traumatic ecchymotic areas secondary to fall. Ice pack as needed. Continue monitoring. 5. Anemia has improved. 6. Dyslipidemia. Continue nutritional and possible medical optimization. Thank you Problems: Subjective 24 Hr Interval Summary Duplex negative. No f/c. No n/v. Feels better. No gamble/dizzy/visual or neuro changes. No dysuria. No cough. No sz. Erythema still persists. No abdominal pain. Exam/Review of Systems Vital Signs Vitals Vital Signs Date Time Temp Pulse Resp B/P Pulse Ox O2 Delivery O2 Flow Rate FiO2 02/02/17 10:01 73 117/62 02/02/17 07:19 98.1 18 92 Intake and Output 02/01/17 02/01/17 02/02/17 14:59 22:59 06:59 Intake Total 200 ml 1900 ml 780 ml Balance 200 ml 1900 ml 780 ml Exam Free Text/Dictation GENERAL: No acute distress. Pleasant. HEENT: Pupils equal, reactive. No scleral icterus. Periorbital hematoma. Mucous membranes are moist. NECK: Supple. No crepitus, no JVD, no midline tenderness. PULMONARY: Normal respiratory effort. No wheezing. CARDIOVASCULAR: S1, S2 present. ABDOMEN: Soft, nontender. EXTREMITIES: Multiple ecchymoses. Bilateral lower extremity skin changes. Wound of the right lower extremity that scabbed over. Left anterior lower extremity wound with debris and foul odor. Blanching erythema, left lower extremity with some swelling and minimal tenderness. VASCULAR: Capillary refill is 2 seconds. NEUROLOGIC: Alert, oriented. Moves all 4 extremities grossly. PSYCHIATRIC: Normal affect. LYMPHATICS: No inguinal or cervical lymphadenopathy. Results Free Text/Dictation Duplex: 1. No evidence of a deep vein thrombosis involving the left lower extremity. Result Diagram: 02/02/17 0510 02/02/17 0510 GUS GRAMAJO MD Feb 02, 2017 10:33
--- NOTE | 2017-02-02 10:55 | PN ---
Date/Time of Note Date/Time of Note DATE: 02/02/17 TIME: 10:52 Assessment/Plan VTE Prophylaxis VTE Prophylaxis Intervention: heparin Lines/Catheters IV [facility]ter [facility] (from [facility]): Saline Lock Urinary Cath still in place: No Assessment/Plan Assessment/Plan 1. Left lower extremity pain secondary to cellulitis with necrotic open wound with foul smellilng floor. Continue broad spectrum IV antibiotics. wound not healign well,IV abx Zosyn and vancomycin, US LLE negative for DVT- s/p General surgery Consult by - plan for I & D by general surgery 2. s/p mechanical fall with significant bruising and left frontal hematoma - c/ ointractable pain, very unsteady gait 2. High cholesterol. Check lipid panel. 3. Status post fall. Again, head CT was negative. She does have some bruising however and also a left eft periorbital hematoma. Continue pain control medications, physical therapy and occupational therapy consults and monitor for now. Avoid anticoagulants for now. 4. Gastrointestinal prophylaxis, proton pump inhibitor. 5. Deep vein thrombosis prophylaxis, heparin pt has non healing Left leg wound with Foul smelling odor, MRI negative for obvious Findings of OM but due to non healing wound that required I & D By G surg- will treat as Early osteomyelitis and give her 3- 4 weeks of IV abx . will discuss with familly further options of SNF vs Home with home health Subjective 24 Hr Interval Summary Free Text/Dictation pt has non healing Left leg wound with Foul smelling odor, MRI negative for obvious Findings of OM but due to non healing wound that required I & D By G surg- will treat as Early osteomyelitis and give her 3- 4 weeks of IV abx . will discuss with familly further options of SNF vs Home with home health Exam/Review of Systems Vital Signs Vitals Vital Signs Date Time Temp Pulse Resp B/P Pulse Ox O2 Delivery O2 Flow Rate FiO2 02/02/17 10:01 73 117/62 02/02/17 07:19 98.1 18 92 Intake and Output 02/01/17 02/01/17 02/02/17 15:00 23:00 07:00 Intake Total 200 ml 1900 ml 780 ml Balance 200 ml 1900 ml 780 ml Exam GENERAL: No acute distress. Pleasant. HEENT: Pupils equal, reactive. No scleral icterus. Periorbital hematoma. Mucous membranes are moist. NECK: Supple. No crepitus, no JVD, no midline tenderness. PULMONARY: Normal respiratory effort. No wheezing. CARDIOVASCULAR: S1, S2 present. ABDOMEN: Soft, nontender. EXTREMITIES: Multiple ecchymoses. Bilateral lower extremity skin changes. Wound of the right lower extremity that scabbed over. Left anterior lower extremity wound with debris and foul odor. Blanching erythema, left lower extremity with some swelling and minimal tenderness. VASCULAR: Capillary refill is 2 seconds. NEUROLOGIC: Alert, oriented. Moves all 4 extremities grossly. PSYCHIATRIC: Normal affect. LYMPHATICS: No inguinal or cervical lymphadenopathy. Results Result Diagram: 02/02/17 0510 02/02/17 0510 Results 24 hrs Laboratory Tests Test 02/02/17 05:10 Activated Partial Thromboplast Time 32.3 Alanine Aminotransferase (ALT/SGPT) 25 Albumin 3.1 L Albumin/Globulin Ratio 0.93 Alkaline Phosphatase 93 Anion Gap 13 Aspartate Amino Transf (AST/SGOT) 20 Basophils # 0.0 Basophils % 0.4 Blood Urea Nitrogen 15 Calcium Level 10.1 Carbon Dioxide Level 25 Chloride Level 107 Creatinine 0.51 Direct Bilirubin 0.00 Eosinophils # 0.2 Eosinophils % 2.5 Globulin 3.30 H Glucose Level 95 Hematocrit 37.0 Hemoglobin 12.0 INR International Normalized Ratio 1.07 Indirect Bilirubin 0.7 Lymphocytes # 2.1 Lymphocytes % 24.6 Mean Corpuscular Hemoglobin 29.7 Mean Corpuscular Hemoglobin Concent 32.4 Mean Corpuscular Volume 91.6 Mean Platelet Volume 9.4 Monocytes # 0.6 Monocytes % 7.4 Neutrophils # 5.5 Neutrophils % 63.9 Nucleated Red Blood Cells # 0.0 Nucleated Red Blood Cells % 0.0 Platelet Count 332 Potassium Level 3.8 Prothrombin Time 13.9 Prothrombin Time Ratio 1.1 Red Blood Count 4.04 L Red Cell Distribution Width 12.6 Sodium Level 141 Total Bilirubin 0.7 Total Protein 6.4 White Blood Count 8.6 Medications Medications Current Medications Ondansetron HCl (Zofran Inj) 4 mg Q6H PRN IV NAUSEA AND/OR VOMITING Last administered on 01/28/17t 03:59; Admin Dose 4 MG; Start 01/28/17 at 03:30 Acetaminophen (Tylenol Tab) 650 mg Q6H PRN PO PAIN LEVEL 1-3 OR FEVER; Start at 03:30 Acetaminophen/ Hydrocodone Bitart ([place] (5/325)) 1 tab Q6H PRN PO MODERATE PAIN LEVEL 4-6; Start 01/28/17 at 03:30 Docusate Sodium (Colace) 100 mg Q12H PRN PO CONSTIPATION; Start 01/28/17 at 03: 30 Magnesium Hydroxide (Milk Of Mag) 30 ml DAILY PRN PO CONSTIPATION; Start at 03:30 Sodium Biphosphate/ Sodium Phosphate (Fleet Enema) 133 ml DAILY PRN [place] CONSTIPATION; Start 01/28/17 at 03:30 Pantoprazole (Protonix Tab) 40 mg DAILY@06 PO Last administered on 02/02/17 05 :58; Admin Dose 40 MG; Start 01/28/17 at 06:00 Lorazepam (Ativan) 0.5 mg Q6H PRN IV ANXIETY; Start 01/28/17 at 03:30 Hydralazine HCl (Apresoline) 10 mg Q6H PRN IV ELEVATED BLOOD PRESSURE; Start at 03:30 Nitroglycerin 1 tab 1 tab Q5M PRN SL ANGINA; Start 01/28/17 at 03:30 Cefepime HCl 50 ml @ 100 mls/hr Q12 IVPB Last administered on 02/02/17 09:50 ; Admin Dose 100 MLS/HR; Start 01/28/17 at 09:00 Dextrose/Sodium Chloride (D5-1/2ns) 1,000 ml @ 50 mls/hr Q20H IV Last administered on 02/02/17 09:50; Admin Dose 50 MLS/HR; Start 01/28/17 at 11:00 Hydromorphone HCl (Dilaudid) 1 mg Q4H PRN IV Severe PAIN Last administered on 18:38; Admin Dose 1 MG; Start 01/28/17 at 11:00 Amlodipine Besylate (Norvasc) 5 mg BID PO Last administered on 02/02/17 09:49 ; Admin Dose 5 MG; Start 01/29/17 at 21:00 Promethazine HCl/ Codeine (Phenergan/ Codeine) 5 ml Q4H PRN PO COUGH Last administered on 02/01/17 08:47; Admin Dose 5 ML; Start 01/31/17 at 12:00 Heparin Sodium (Porcine) 5000 unit 5,000 unit BID SC Last administered on t 09:56; Admin Dose 5,000 UNIT; Start 02/01/17 at 10:30 Vancomycin HCl (Vancocin) 250 ml @ 125 mls/hr Q24H IVPB ; Start 02/02/17 at 12: 00 Lidocaine/ Epinephrine (Xylocaine 1%/ Epi) 40 ml ONCE INJ ; Start 02/02/17 at 05 :00; Stop 02/03/17 at 04:59 REY BRYANT MD Feb 02, 2017 10:55
[2017-02-02] MEDS ORDERED: LIDOCAINE 1% (MDV) 20 ML INJ SC ONE (11:00)
[2017-02-02] MEDS: VANCOMYCIN 1 GM in NS 250 ML IVPB SCH (12:24)
[2017-02-02 20:00] VITALS: BP 132/63; RESP 18
[2017-02-03] MEDS: PANTOPRAZOLE (EC) 40 MG TAB PO SCH (06:41)
[2017-02-03 07:08] VITALS: BP 132/68; RESP 18
[2017-02-03] MEDS: SODIUM HYPOCHLORITE 0.125% 473 ML BTL IRR SCH (09:00)
[2017-02-03] MEDS: CEFEPIME 2GM/50 ML (PMX) 50 ML IVPB SCH ×2 (09:21→20:24)
[2017-02-03] MEDS: AMLODIPINE 5 MG TAB PO SCH ×2 (09:23→20:27)
[2017-02-03] MEDS: HEPARIN 5,000 UNIT/0.5 ML SYG SC SCH ×2 (09:51→20:34)
--- NOTE | 2017-02-03 12:29 | RADRPT ---
PROCEDURE: US guidance for PICC line CLINICAL INDICATION: PICC line placement TECHNIQUE: Multiple real-time images were acquired of the patient's arm utilizing a high resolutio n transducer. This was performed by the PICC line nurse for venous access. COMPARISON: None FINDINGS: Ultrasound guidance for PICC line placement. IMPRESSION: Ultrasound guidance for PICC line placement. RPTAT: AA .Castro June MD, MD Date Time Electronically viewed and signed by .Castro June MD, on 02/03/2017 12:28 .S/
--- NOTE | 2017-02-03 12:40 | RADRPT ---
PROCEDURE: XR Chest. CLINICAL INDICATION: Check PICC line position. TECHNIQUE: Single frontal view. COMPARISON: No prior study is available for comparison. FINDINGS: There is a left arm PICC line with the tip in the lower superior vena cava. There is mild atelectas is at the lung bases. The lungs are otherwise clear. The heart is mildly enlarged. There is no pleural effusion. There is no pneumothorax. IMPRESSION: 1. Satisfactory position of left arm PICC line. 2. Mild atelectasis at the lung bases. 3. Mild cardiomegaly. RPTAT: QQ .Zelalem Varela MD, MD Date Time Electronically viewed and signed by .Zelalem Varela MD, on 02/03/2017 12:40 .R/
[2017-02-03] MEDS: VANCOMYCIN 1 GM in NS 250 ML IVPB SCH (13:24)
[2017-02-03] MEDS: DEXTROSE 5%-0.45% NACL 1,000 ML IV SCH (16:27)
--- NOTE | 2017-02-03 17:01 | PN ---
Date/Time of Note Date/Time of Note DATE: 02/03/17 TIME: 16:59 Assessment/Plan VTE Prophylaxis VTE Prophylaxis Intervention: heparin Lines/Catheters IV Catheter Type (from Nrsg): PICC Line Central line still needed: Yes (IV abx for possible OM ) Urinary Cath still in place: No Assessment/Plan Assessment/Plan 1. Left lower extremity pain secondary to cellulitis with necrotic open wound with foul smellilng floor. Continue broad spectrum IV antibiotics. wound not healign well,IV abx Zosyn and vancomycin, US LLE negative for DVT- s/p General surgery Consult by - plan for I & D by general surgery 2. s/p mechanical fall with significant bruising and left frontal hematoma - c/ ointractable pain, very unsteady gait 2. High cholesterol. Check lipid panel. 3. Status post fall. Again, head CT was negative. She does have some bruising however and also a left eft periorbital hematoma. Continue pain control medications, physical therapy and occupational therapy consults and monitor for now. Avoid anticoagulants for now. 4. Gastrointestinal prophylaxis, proton pump inhibitor. 5. Deep vein thrombosis prophylaxis, heparin pt has non healing Left leg wound with Foul smelling odor, MRI negative for obvious Findings of OM but due to non healing wound that required I & D By G surg- will treat as Early osteomyelitis and give her 3- 4 weeks of IV abx . will discuss with familly further options of SNF- agreed for SNF placement, PICC line placement today Subjective 24 Hr Interval Summary Free Text/Dictation Plan for PICC line, pt agreed for SNF placemen t Exam/Review of Systems Vital Signs Vitals Vital Signs Date Time Temp Pulse Resp B/P Pulse Ox O2 Delivery O2 Flow Rate FiO2 02/03/17 07:08 98.2 70 18 132/68 94 Intake and Output 02/02/17 02/02/17 02/03/17 15:00 23:00 07:00 Intake Total 890 ml 810 ml Balance 890 ml 810 ml Exam GENERAL: No acute distress. Pleasant. HEENT: Pupils equal, reactive. No scleral icterus. Periorbital hematoma. Mucous membranes are moist. NECK: Supple. No crepitus, no JVD, no midline tenderness. PULMONARY: Normal respiratory effort. No wheezing. CARDIOVASCULAR: S1, S2 present. ABDOMEN: Soft, nontender. EXTREMITIES: Multiple ecchymoses. Bilateral lower extremity skin changes. Wound of the right lower extremity that scabbed over. Left anterior lower extremity wound with debris and foul odor. Blanching erythema, left lower extremity with some swelling and minimal tenderness. VASCULAR: Capillary refill is 2 seconds. NEUROLOGIC: Alert, oriented. Moves all 4 extremities grossly. PSYCHIATRIC: Normal affect. LYMPHATICS: No inguinal or cervical lymphadenopathy. Results Result Diagram: 02/02/1750902/02/17509 Medications Medications Current Medications Ondansetron HCl (Zofran Inj) 4 mg Q6H PRN IV NAUSEA AND/OR VOMITING Last administered on 01/28/17 03:59; Admin Dose 4 MG; Start 01/28/17 at 03:30 Acetaminophen (Tylenol Tab) 650 mg Q6H PRN PO PAIN LEVEL 1-3 OR FEVER; Start at 03:30 Acetaminophen/ Hydrocodone Bitart ([place] (5/325)) 1 tab Q6H PRN PO MODERATE PAIN LEVEL 4-6; Start 01/28/17 at 03:30 Docusate Sodium (Colace) 100 mg Q12H PRN PO CONSTIPATION; Start 01/28/17 at 03: 30 Magnesium Hydroxide (Milk Of Mag) 30 ml DAILY PRN PO CONSTIPATION; Start at 03:30 Sodium Biphosphate/ Sodium Phosphate (Fleet Enema) 133 ml DAILY PRN [place] CONSTIPATION; Start 01/28/17 at 03:30 Pantoprazole (Protonix Tab) 40 mg DAILY@06 PO Last administered on 02/03/17 06 :41; Admin Dose 40 MG; Start 01/28/17 at 06:00 Lorazepam (Ativan) 0.5 mg Q6H PRN IV ANXIETY; Start 01/28/17 at 03:30 Hydralazine HCl (Apresoline) 10 mg Q6H PRN IV ELEVATED BLOOD PRESSURE; Start at 03:30 Nitroglycerin 1 tab 1 tab Q5M PRN SL ANGINA; Start 01/28/17 at 03:30 Cefepime HCl 50 ml @ 100 mls/hr Q12 IVPB Last administered on 02/03/17 09:21 ; Admin Dose 100 MLS/HR; Start 01/28/17 at 09:00 Dextrose/Sodium Chloride (D5-1/2ns) 1,000 ml @ 50 mls/hr Q20H IV Last administered on 02/03/17 16:27; Admin Dose 50 MLS/HR; Start 01/28/17 at 11:00 Hydromorphone HCl (Dilaudid) 1 mg Q4H PRN IV Severe PAIN Last administered on 18:38; Admin Dose 1 MG; Start 01/28/17 at 11:00 Amlodipine Besylate (Norvasc) 5 mg BID PO Last administered on 02/03/17 09:23 ; Admin Dose 5 MG; Start 01/29/17 at 21:00 Promethazine HCl/ Codeine (Phenergan/ Codeine) 5 ml Q4H PRN PO COUGH Last administered on 02/01/17 08:47; Admin Dose 5 ML; Start 01/31/17 at 12:00 Heparin Sodium (Porcine) 5000 unit 5,000 unit BID SC Last administered on 09:51; Admin Dose 5,000 UNIT; Start 02/01/17 at 10:30 Vancomycin HCl (Vancocin) 250 ml @ 125 mls/hr Q24H IVPB Last administered on 13:24; Admin Dose 125 MLS/HR; Start 02/02/17 at 12:00 Sodium Hypochlorite ([place] (1/4 Strength)) 1 applic DAILY IRR ; Start at 09:00 IV Flush (NS 10 ml) 10 ml PRN PRN IV IV PROTOCOL; Start 02/03/17 at 13:00 Miscellaneous Information (*Rx Drug Level Order Reminder*) VANCO TROUGH @ 1, 100 ON... ONCE ONCE XX ; Start 02/04/17 at 11:00; Stop 02/04/17 at 11:01 REY BRYANT MD Feb 03, 2017 17:01
[2017-02-03] MEDS: HYDROCODONE/APAP (5/325) TAB PO PRN (17:23)
[2017-02-03 20:07] VITALS: BP 108/58; RESP 18
--- NOTE | 2017-02-03 23:19 | PN ---
Date/Time of Note Date/Time of Note DATE: 02/03/17 TIME: 23:18 Assessment/Plan Lines/Catheters IV Catheter Type (from [facility]): PICC Line Deng in Place (from [facility]): No Assessment/Plan Chief Complaint/Hosp Course 1. Left anterior guaman traumatic wound with necrotic tissue and foul odor. Continue antibiotics, local wound care with Dakin's, elevation of the left lower extremity, nutritional optimization and Vitamin C and short-term zinc. Debridement today. 2. Left lower extremity swelling and pain with MRI findings of dilated veins. Duplex negative for DVT. 3. Cellulitis of left lower extremity. Continue antibiotics, elevation. 4. Multiple traumatic ecchymotic areas secondary to fall. Ice pack as needed. Continue monitoring. 5. Anemia has improved. 6. Dyslipidemia. Continue nutritional and possible medical optimization. Thank you Problems: Subjective 24 Hr Interval Summary No f/c. No n/v. Feels better. No gamble/dizzy/visual or neuro changes. No dysuria. No cough. No sz. Erythema still persists. No abdominal pain. Exam/Review of Systems Vital Signs Vitals Vital Signs Date Time Temp Pulse Resp B/P Pulse Ox O2 Delivery O2 Flow Rate FiO2 02/03/17 20:07 98.4 64 18 108/58 97 Intake and Output 02/02/17 02/02/17 02/03/17 15:00 23:00 07:00 Intake Total 890 ml 810 ml Balance 890 ml 810 ml Exam Free Text/Dictation GENERAL: No acute distress. Pleasant. HEENT: Pupils equal, reactive. No scleral icterus. Periorbital hematoma. Mucous membranes are moist. NECK: Supple. No crepitus, no JVD, no midline tenderness. PULMONARY: Normal respiratory effort. No wheezing. CARDIOVASCULAR: S1, S2 present. ABDOMEN: Soft, nontender. EXTREMITIES: Multiple ecchymoses. Bilateral lower extremity skin changes. Wound of the right lower extremity that scabbed over. Left anterior lower extremity wound with debris and foul odor. Blanching erythema, left lower extremity with some swelling and minimal tenderness. VASCULAR: Capillary refill is 2 seconds. NEUROLOGIC: Alert, oriented. Moves all 4 extremities grossly. PSYCHIATRIC: Normal affect. LYMPHATICS: No inguinal or cervical lymphadenopathy. Results Result Diagram: 02/02/1750902/02/17509 GUS GRAMAJO MD Feb 03, 2017 23:19
--- NOTE | 2017-02-03 23:25 | OPR ---
Date/Time of Note Date/Time of Note DATE: 02/03/17 TIME: 23:19 Operative Report Procedure Date: Feb 03, 2017 Preoperative Diagnosis Left anterior guaman necrotic wound with exposed fascia. 4x2cm with undermining. Postoperative Diagnosis Left anterior guaman necrotic wound with exposed fascia. 4x2cm with undermining. Operation Performed 1. Excisional debridement of left anterior guaman skin, subcutaneous, and fascia. 4x2cm 2. Local [place], [address] Surgeon: GUS GRAMAJO MD Anesthesia: other (Local) Estimated Blood Loss: 0 - 10 ml's Specimens None Tubes/Drains 4x4 packing with dakins Complications: None Pt Condition Post Procedure: stable Disposition: other (In own room) Indications Per notes. R/B/A were fully explained and reviewed as per usual and customary. Procedure Description Patient was placed supine on her own bed. Area was prepped and draped sterily. Local anesthetic was injected into subcutaneous tissue. Using scalpel and curette, the necrotic tissue of skin, subq, and fascia were debrided to healthier edges. Hemostasis was obtained with pressure and silver nitrate sticks. Wound was irrigated and packed with 4x4. Dry dressing applied. GUS GRAMAJO MD Feb 03, 2017 23:25
[2017-02-04] MEDS: PANTOPRAZOLE (EC) 40 MG TAB PO SCH (05:31)
[2017-02-04 07:50] VITALS: BP 135/73; RESP 18
[2017-02-04] MEDS: AMLODIPINE 5 MG TAB PO SCH (09:06)
[2017-02-04] MEDS: CEFEPIME 2GM/50 ML (PMX) 50 ML IVPB SCH (09:06)
[2017-02-04] MEDS: SODIUM HYPOCHLORITE 0.125% 473 ML BTL IRR SCH (09:09)
[2017-02-04] MEDS: HEPARIN 5,000 UNIT/0.5 ML SYG SC SCH (09:35)
[2017-02-04] MEDS: DEXTROSE 5%-0.45% NACL 1,000 ML IV SCH (11:15)
--- NOTE | 2017-02-04 12:12 | PN ---
Date/Time of Note Date/Time of Note DATE: 02/04/17 TIME: 12:11 Assessment/Plan VTE Prophylaxis VTE Prophylaxis Intervention: heparin Lines/Catheters IV Catheter Type (from Nrsg): PICC Line Central line still needed: Yes (IV abx ) Urinary Cath still in place: No Assessment/Plan Assessment/Plan 1. Left lower extremity pain secondary to cellulitis with necrotic open wound with foul smellilng floor. Continue broad spectrum IV antibiotics. wound not healign well,IV abx Zosyn and vancomycin, US LLE negative for DVT- s/p General surgery Consult by - plan for I & D by general surgery 2. s/p mechanical fall with significant bruising and left frontal hematoma - c/ ointractable pain, very unsteady gait 2. High cholesterol. Check lipid panel. 3. Status post fall. Again, head CT was negative. She does have some bruising however and also a left eft periorbital hematoma. Continue pain control medications, physical therapy and occupational therapy consults and monitor for now. Avoid anticoagulants for now. 4. Gastrointestinal prophylaxis, proton pump inhibitor. 5. Deep vein thrombosis prophylaxis, heparin pt has non healing Left leg wound with Foul smelling odor, MRI negative for obvious Findings of OM but due to non healing wound that required I & D By G surg- will treat as Early osteomyelitis and give her 3- 4 weeks of IV abx . will discuss with familly further options of SNF- agreed for SNF placement, s/p PICC line placement, s/p I & D Subjective 24 Hr Interval Summary Free Text/Dictation s/p Excisional debridement of left anterior guaman skin, subcutaneous, and fascia , BP stable Exam/Review of Systems Vital Signs Vitals Vital Signs Date Time Temp Pulse Resp B/P Pulse Ox O2 Delivery O2 Flow Rate FiO2 02/04/17 07:50 98.3 63 18 135/73 92 Intake and Output 02/03/17 02/03/17 02/04/17 15:00 23:00 07:00 Intake Total 50 ml 1400 ml 790 ml Balance 50 ml 1400 ml 790 ml Results Result Diagram: 02/02/17 0510 02/02/17 0510 Medications Medications Current Medications Ondansetron HCl (Zofran Inj) 4 mg Q6H PRN IV NAUSEA AND/OR VOMITING Last administered on 01/28/17 03:59; Admin Dose 4 MG; Start 01/28/17 at 03:30 Acetaminophen (Tylenol Tab) 650 mg Q6H PRN PO PAIN LEVEL 1-3 OR FEVER; Start at 03:30 Acetaminophen/ Hydrocodone Bitart ([place] (5/325)) 1 tab Q6H PRN PO MODERATE PAIN LEVEL 4-6 Last administered on 02/03/17 17:23; Admin Dose 1 TAB; Start at 03:30 Docusate Sodium (Colace) 100 mg Q12H PRN PO CONSTIPATION; Start 01/28/17 at 03: 30 Magnesium Hydroxide (Milk Of Mag) 30 ml DAILY PRN PO CONSTIPATION; Start at 03:30 Sodium Biphosphate/ Sodium Phosphate (Fleet Enema) 133 ml DAILY PRN [place] CONSTIPATION; Start 01/28/17 at 03:30 Pantoprazole (Protonix Tab) 40 mg DAILY@06 PO Last administered on 02/04/17 05 :31; Admin Dose 40 MG; Start 01/28/17 at 06:00 Lorazepam (Ativan) 0.5 mg Q6H PRN IV ANXIETY; Start 01/28/17 at 03:30 Hydralazine HCl (Apresoline) 10 mg Q6H PRN IV ELEVATED BLOOD PRESSURE; Start at 03:30 Nitroglycerin 1 tab 1 tab Q5M PRN SL ANGINA; Start 01/28/17 at 03:30 Cefepime HCl 50 ml @ 100 mls/hr Q12 IVPB Last administered on 02/04/17 09:06 ; Admin Dose 100 MLS/HR; Start 01/28/17 at 09:00 Dextrose/Sodium Chloride (D5-1/2ns) 1,000 ml @ 50 mls/hr Q20H IV Last administered on 02/03/17 16:27; Admin Dose 50 MLS/HR; Start 01/28/17 at 11:00 Hydromorphone HCl (Dilaudid) 1 mg Q4H PRN IV Severe PAIN Last administered on 18:38; Admin Dose 1 MG; Start 01/28/17 at 11:00 Amlodipine Besylate (Norvasc) 5 mg BID PO Last administered on 02/04/17 09:06 ; Admin Dose 5 MG; Start 01/29/17 at 21:00 Promethazine HCl/ Codeine (Phenergan/ Codeine) 5 ml Q4H PRN PO COUGH Last administered on 02/01/17 08:47; Admin Dose 5 ML; Start 01/31/17 at 12:00 Heparin Sodium (Porcine) 5000 unit 5,000 unit BID SC Last administered on 09:35; Admin Dose 5,000 UNIT; Start 02/01/17 at 10:30 Vancomycin HCl (Vancocin) 250 ml @ 125 mls/hr Q24H IVPB Last administered on 13:24; Admin Dose 125 MLS/HR; Start 02/02/17 at 12:00 Sodium Hypochlorite (Dakin'S (1/4 Strength)) 1 applic DAILY IRR Last administered on 02/04/17 09:09; Admin Dose 1 APPLIC; Start 02/03/17 at 09:00 IV Flush (NS 10 ml) 10 ml PRN PRN IV IV PROTOCOL; Start 02/03/17 at 13:00 REY BRYANT MD Feb 04, 2017 12:12
--- NOTE | 2017-02-04 12:24 | PDOCDIS ---
Discharge Instructions CONDITION Patient Condition: Good HOME CARE INSTRUCTIONS: Special Diet: carb controlled, low fat low cholesterol ACTIVITY: Activity Restrictions: Slowly Increase Activity Rest between Activity Avoid heavy lifting Avoid Heavy Housework FOLLOW UP/APPOINTMENTS Appointments follow up with Dr.Kalpesh Bryant at [facility], Wound care as per General surgery recommendations REY BRYANT MD Feb 04, 2017 12:24
[2017-02-04] MEDS: VANCOMYCIN 1 GM in NS 250 ML IVPB SCH (12:46)
[2017-02-04] MEDS: HYDROCODONE/APAP (5/325) TAB PO PRN (12:51)
--- NOTE | 2017-02-04 22:06 | DS ---
DATE OF ADMISSION: 01/28/2017 DATE OF DISCHARGE: 02/04/2017 FINAL DISCHARGE DIAGNOSES: 1. Left lower extremity cellulitis with open wound consistent with possible early left leg osteomye litis. 2. Status post mechanical fall with significant bruising and left frontal hematoma. 3. History of hyperlipidemia. 4. Status post fall. CONSULTATIONS DONE DURING THIS HOSPITALIZATION: General surgery consult, Dr. Arash Wisdom. PROCEDURES AND OPERATIONS PROCEDURES PERFORMED DURING THIS HOSPITALIZATION: 1. The patient had an excisional skin debridement and incision and drainage done on her left leg wo und by general surgery, Dr. Arash Wisdom. 2. The patient had a PICC line placement for long-term IV antibiotics. HOSPITAL COURSE: This is a 76-year-old female with a past medical history of hypertension who had a fall episode approximately 1 week prior to the presentation. She had multiple bruises all over her along with a very significant left frontal hematoma. The patient had initial workup done for her f all episodes including serial troponins, EKG, which was negative. She had a CT head without contras t done that was also negative. The patient is noted to have left lower extremity open wound, which was thought secondary to infection. She also developed left leg cellulitis. She got admitted to th e telemetry floor, subsequently downgraded to the med/surg floor. She was treated with IV antibioti cs, vancomycin and cefepime, for her left leg cellulitis. The patient continues to complain the lef t leg pain and, upon further evaluation, she was noted to have a very significant open wound all the way up to her wound and she had MRI of her left foot, left leg done, which was suspicious for possi ble early osteomyelitis. Due to deep nature of the wound, patient had a general surgery evaluation done by Dr. Arash Wisdom who did incision and drainage of that wound and a culture was sent. The patient was treated with IV antibiotics while being in the hospital. Her wound culture grew a Staph ylococcus aureus and acinetobacter. The patient was treated with IV antibiotics, cefepime and also given vancomycin while being in the hospital. The patient was [facility] a [facility] after getting the PICC line placement and she will be continued on IV antibiotics for Staphyloco ccus aureus and acinetobacter to finish the course for her possible left leg osteomyelitis. DISPOSITION: To [facility]. DISCHARGE CONDITION: Stable and improved compared to admission. DISCHARGE ACTIVITIES: As tolerated, slowly resume to the normal baseline activity. DISCHARGE DIET: Regular diet. DISCHARGE MEDICATIONS: As per medical reconciliation. 1. Please note that the patient will get 3 weeks of IV vancomycin in the prison facility. 2. The patient will also get 2 weeks of IV cefepime 1 gram IV b.i.d. at the [facility]. 3. Followed by Levaquin 500 mg p.o. daily for another 2 weeks after the patient finishes the cefepi me. DISCHARGE FOLLOWUP AND INSTRUCTIONS: The patient is to follow up with her own primary care doctor, Dr. Rey Bryant, in the prison [facility]. She will be followed up by him and further oren n and care will depend upon her course in the prison [facility]. Dictated By: REY BRYANT MD, KP/JACK Conf#: [id number] DID#: [id number] CC: TARA WELLINGTON;*End*
[2017-02-04] MEDS ORDERED: VANCOMYCIN 1 GM in NS 250 ML IVPB SCH (23:00)
--- NOTE | 2017-02-04 23:03 | PN ---
Date/Time of Note Date/Time of Note DATE: 02/04/17 TIME: 23:00 Assessment/Plan Lines/Catheters IV Catheter Type (from [facility], [place]): PICC Line Deng in Place (from [facility], [place]): No Assessment/Plan Chief Complaint/Hosp Course 1. Left anterior guaman traumatic wound s/p exc gurjit 02/03 -antibiotics, -local wound care with Dakin's, -elevation of the left lower extremity, -nutritional optimization and Vitamin C and short-term zinc 2. Left lower extremity swelling and pain with MRI findings of dilated veins. Duplex negative for DVT. 3. Cellulitis of left lower extremity. Continue antibiotics, elevation. 4. Multiple traumatic ecchymotic areas secondary to fall. Ice pack as needed. Continue monitoring. 5. Anemia has improved. 6. Dyslipidemia. Continue nutritional and possible medical optimization. Thank you Late entry Problems: Subjective 24 Hr Interval Summary s/p Excisional debridement LE 02/03. No f/c. No n/v. Feels better. No gamble/ dizzy/visual or neuro changes. No dysuria. No cough. No sz. Erythema still persists. No abdominal pain. Exam/Review of Systems Vital Signs Vitals Vital Signs Date Time Temp Pulse Resp B/P Pulse Ox O2 Delivery O2 Flow Rate FiO2 02/04/17 07:50 98.3 63 18 135/73 92 Intake and Output 02/03/17 02/03/17 02/04/17 15:00 23:00 07:00 Intake Total 50 ml 1400 ml 790 ml Balance 50 ml 1400 ml 790 ml Exam Free Text/Dictation GENERAL: No acute distress. Pleasant. HEENT: Pupils equal, reactive. No scleral icterus. Periorbital hematoma. Mucous membranes are moist. NECK: Supple. No crepitus, no JVD, no midline tenderness. PULMONARY: Normal respiratory effort. No wheezing. CARDIOVASCULAR: S1, S2 present. ABDOMEN: Soft, nontender. EXTREMITIES: Multiple ecchymoses. Bilateral lower extremity skin changes. Wound of the right lower extremity that scabbed over. Left anterior lower extremity wound packed. Blanching erythema, left lower extremity with some swelling and minimal tenderness. VASCULAR: Capillary refill is 2 seconds. NEUROLOGIC: Alert, oriented. Moves all 4 extremities grossly. PSYCHIATRIC: Normal affect. LYMPHATICS: No inguinal or cervical lymphadenopathy. Results Result Diagram: 02/02/17 0510 02/02/17 0510 GUS GRAMAJO MD Feb 04, 2017 23:03
== END 2017-02-04 16:30 | DRG 571 ==
LOC: E/R 22:26 → MS2 01-28 02:38 → OBSVTOIN 01-28 10:43 → MS2 01-31 23:01
PROVIDERS: ADMIT Hospitalist; ATTEND Internal Medicine Nephrology
PROC: 0JBP0ZZ Excision of Left Lower Leg Subcutaneous Tissue and Fascia, Open Approach (ICD-10-PCS; principal; 2017-02-03)
PROC: 02HV33Z Insertion of Infusion Device into Superior Vena Cava, Percutaneous Approach (ICD-10-PCS; 2017-02-03)
DX: L03.116 Cellulitis of left lower limb (principal); M86.8X6 Other osteomyelitis, lower leg; D64.9 Anemia, unspecified; S81.812A Laceration without foreign body, left lower leg, initial encounter; M60.9 Myositis, unspecified; E78.5 Hyperlipidemia, unspecified; X58.XXXA Exposure to other specified factors, initial encounter; W19.XXXA Unspecified fall, initial encounter; S00.12XA Contusion of left eyelid and periocular area, initial encounter
CPT/HCPCS: 36415; 36569; 70450; 71010; 73590; 73718; 76937; 80048; 80053; 80061; 80202; 83036; 83735; 84100; 84439; 84443; 85025; 85610; 85730; 87040; 87070; 93971; 96374; 96375; 97116; 97162; 97166; 97530; G0378; J0692; J1170; J1644; J2270; J2405; J3370; J7030; J7042; J7050